=== PATIENT | female | born 1985 | race Caucasian/White ===

== ENCOUNTER 2018-11-29 12:26 | Outpatient (CLI) | payer BC, OTHER ==
[2018-11-29 13:09] LABS: Appearance,Urine Clear (Clear); Bilirubin,Urine Negative (Negative); Blood,Urine Negative (Negative); Color,Urine Light Yellow; Glucose,Urine (UA) Negative (Negative); Ketones,Urine Negative (Negative); Leukocyte Esterase,Urine Negative (Negative); Nitrite,Urine Negative (Negative); Protein,Urine Negative (Negative); Specific Gravity,Urine 1.004 (1.001-1.035); Urobilinogen,Urine <2.0 mg/dL (<2.0)
[2018-11-29 13:19] LABS: Amphetamine Screen,Urine Not Detected (NotDetected); Barbiturate Screen,Urine Not Detected (NotDetected); Benzodiazepines Screen,Urine Not Detected (NotDetected); Cocaine Screen,Urine Not Detected (NotDetected); Methadone Screen, Urine Not Detected (NotDetected); Opiate Screen,Urine Not Detected (NotDetected); Oxycodone Screen, Urine Not Detected (NotDetected); Phencyclidine Screen,Urine Not Detected (NotDetected); Tricyclic Antidepressant,Urine Not Detected (NotDetected); Urn Cannabinoid Scrn Not Detected (NotDetected)
--- NOTE | 2018-11-29 15:01 | US ---
EXAMINATION TYPE: US OB >= 14 wk fetus DATE OF EXAM: 11/29/2018 COMPARISON: None CLINICAL HISTORY: post dates, mother is very small framed and says her dates have been all over the p lace, previous US at [facility], h/o alcohol abuse TECHNIQUE: OBTA GESTATIONAL AGE / DATING Physician Established: (40 weeks/2 days) EDC: 11/27/2018 Dates by LMP: LMP unknown Dates by First Scan: No previous here Dates by Current Scan: (37 weeks/2 days) EDC: 12/18/2018 SURVEY IUP: Single PLACENTA: Anterior PREVIA: No Previa BOBBI: 10.6 cm Normal CERVICAL LENGTH (transabdominal: norm > 3.0cm): unable to visualize due to empty bladder and he ad shadowing BIOMETRY PRESENTATION: Vertex LIE: Longitudinal BPD: 9.2 cm 37 weeks / 2 days HC: 33.5 cm 38 weeks / 3 days AC: 34.3 cm 38 weeks / 2 days FL: 7.2 cm 37 weeks / 0 days ESTIMATED WEIGHT IN GRAMS: 3321 grams ESTIMATED WEIGHT IN LBS/OZ: 7 lbs. 5 oz. WEIGHT PERCENTAGE BASED ON ESTABLISHED DATES: 22.8% HC/AC: 1.0 Normal FL/AC: 21.0 Normal HEART RATE: 143 bpm RHYTHM: Normal IMPRESSION: 1. Single intrauterine gestation estimated at 37 weeks 2 days gestation based on current ultrasound m easurements. Correlate this with her physician established dating of 40 weeks 2 days and EDC of 2018. 2. Cardiac activity measures 142 bpm. 3. Estimated weight based on the established dates is 22.8% and 3321 g.
[2018-11-29 15:14] VITALS: BP 128/82; PULSE 80; RESP 16; TEMP 97.3
--- NOTE | 2018-12-02 08:37 | P.MSEPDOC ---
Presenting Problems - Arrival Data Date of Arrival on Unit: 11/29/18 Time of Arrival on Unit: 12:25 Mode of Transport: EMS - Complaint OB-Reason for Admission/Chief Complaint: Possible Onset of Labor Medical History - Information : 2 Para: 1 Term: 1 : 0 Abortions: Spontaneous or Elective: 0 Number of Living Children: 1 - Gestational Age Gestational Age by CHANEL (wks/days): 40 Weeks and 2 Days Review of Systems - Review of Systems Constitutional: No problems Breast: No problems ENT: No problems Cardiovascular: No problems Respiratory: No problems Gastrointestinal: No problems Genitourinary: No problems Musculoskeletal: No problems Neurological: No problems Skin: No problems Vital Signs - Temperature Temperature: 97.3 F Temperature Source: Temporal Artery Scan - Pulse Right Sitting Pulse Rate: 80 Pulse Assessment Method: Automatic Cuff - Respirations Respiratory Rate: 16 Oxygen Delivery Method: Room Air - Blood Pressure Right Arm Blood Pressure: 128/82 Blood Pressure Mean: 97 Blood Pressure Source: Automatic Cuff Medical Screen Scoring (Pre) - Cervical Exam Dilation: 1-3 cm = 1 Effacement: More than 50% = 2 Membranes: Intact - Uterine Contractions Frequency: > or = 36 weeks =2 Duration: > 40 seconds = 2 Intensity: N/A - Maternal Vital Signs Maternal Temperature: N/A Maternal Blood Pressure: N/A Signs of Preeclampsia: N/A - Pain Assessment Pain Location and Character: Abdomen Pain Scale Used: Numeric (1 - 10) Pain Intensity: 8 Pain Description: *Acute Pain Frequency: Intermittent Pain Duration Units: Hours Pain Behavior: Vocalization Pain Aggravating Factors: Contractions - Maternal Trauma Maternal Trauma: N/A - Assessment Baseline FHR: 125 Heart Rate - NICHD Category: Category I (Normal) = 0 NST: Reactive Position: N/A Station: N/A - Total Score Total Score (Pre): 7 - Level of Risk Level of Risk: Medium (6-9) Physician Notification (Pre) - Physician Notified Physician Notified Date: 11/29/18 Physician Notified Time: 14:51 Physician/Practitioner Notifed:: Darlene Salas Order Received: Yes (D/c home) - Notification Comment Comment: ALIN, BOBBI 10.6, EFW 3321g per US Disposition - Disposition OB Disposition: Discharge to home Discharge Date: 11/29/18 Discharge Time: 14:55 I agree with the RN Medical Screening Exam: Yes Risk & Benefit of care provided described in d/c instruction: Yes Diagnosis: FALSE LABOR BEFORE 37 COMPLETED WEEKS OF GEST, THIRD TRI
== END 2018-11-29 14:55 | disposition home or self-care (01) ==
LOC: FBPOP 12:26
PROVIDERS: ATTEND Obstetrics & Gynecology
DX: O47.1 False labor at or after 37 completed weeks of gestation (principal); Z3A.40 40 weeks gestation of pregnancy
CPT/HCPCS: 59025; 76805; 80306; 81003; 99213

== ENCOUNTER 2018-11-29 18:58 | Inpatient (IN) | payer BC, OTHER ==
[2018-11-29] MEDS ORDERED: METHYLERGONOVINE 0.2 MG/ML 1 ML AMP IM PRN (21:55)
[2018-11-29] MEDS ORDERED: TERBUTALINE 1 MG/ML VIAL SQ PRN (21:55)
[2018-11-29] MEDS ORDERED: OXYTOCIN 10 UNIT/ML 1 ML VIAL IM PRN (21:55)
[2018-11-29] MEDS ORDERED: CARBOPROST TROMETHAMINE 250 MCG/ML 1 ML AMP IM PRN (21:55)
[2018-11-29] MEDS ORDERED: AMPICILLIN 2,000 MG in SODIUM CHLORIDE 0.9% 100 ML IVPB STA (21:55)
[2018-11-29] MEDS ORDERED: LIDOCAINE 0.5% (PF) 5 MG/ML (50 ML SDV) SQ PRN (21:55)
[2018-11-29] MEDS ORDERED: BUTORPHANOL 1 MG/ML 1 ML VIAL IV PRN (21:57)
[2018-11-29] MEDS ORDERED: OXYTOCIN 30 UNITS/500 ML NS 30 UNIT in SALINE 1 500ML.BAG IV SCH (22:00)
[2018-11-29] MEDS ORDERED: LACTATED RINGERS 1,000 ML IV SCH ×2 (22:00)
[2018-11-29 22:18] VITALS: BMI 19.5
[2018-11-29 22:27] LABS: Basophils % (A) 0 %; Eosinophils # (A) 0.2 k/uL (0-0.7); Eosinophils % (A) 1 %; HCT 36.1 % (34.0-46.0); HGB 12.3 gm/dL (11.4-16.0); Lymphocytes # (A) 1.9 k/uL (1.0-4.8); Lymphocytes % (A) 16 %; MCHC 34.2 g/dL (31.0-37.0); MCV 90.5 fL (80.0-100.0); Monocytes # (A) 0.4 k/uL (0-1.0); Monocytes % (A) 3 %; Neutrophils # (A) 9.7 k/uL (1.3-7.7); Neutrophils % (A) 78 %; Platelet Count 281 k/uL (150-450); RBC 3.99 m/uL (3.80-5.40); RDW 13.3 % (11.5-15.5); WBC 12.4 k/uL (3.8-10.6)
[2018-11-30] MEDS ORDERED: MEASLES-MUMPS-RUBELLA VACC/PF 12,500 UNIT/0.5 ML VIAL SQ ONE (00:50)
[2018-11-30] MEDS ORDERED: LANOLIN CREAM 5 GM TUBE TOPICAL PRN (00:50)
[2018-11-30] MEDS ORDERED: HYDROCORTISONE 2.5% RECTAL CREAM 30 GM TUBE RECTAL PRN (00:50)
[2018-11-30] MEDS ORDERED: HYDROcodone/APAP 5-325MG 1 EACH TAB PO PRN (00:50)
[2018-11-30] MEDS ORDERED: diphenhydrAMINE 50 MG CAP PO PRN (00:50)
[2018-11-30] MEDS ORDERED: diphenhydrAMINE 25 MG CAP PO PRN (00:50)
[2018-11-30] MEDS ORDERED: WITCH HAZEL 1 EACH MED..PAD TOPICAL PRN (00:50)
[2018-11-30] MEDS ORDERED: diphenhydrAMINE 50 MG/ML 1 ML VIAL IVP PRN ×2 (00:50)
[2018-11-30] MEDS ORDERED: BENZOCAINE/MENTHOL SPRAY 1 GM/SPRAY AEROSOL TOPICAL PRN (00:50)
[2018-11-30] MEDS ORDERED: SIMETHICONE 80 MG CHEWABLE PO PRN (00:50)
[2018-11-30] MEDS ORDERED: ZOLPIDEM 5 MG TAB PO PRN (00:50)
--- NOTE | 2018-11-30 00:53 | P.HPOB ---
History of Present Illness H&P Date: 11/30/18 Chief Complaint: Intrauterine at term: Active labor Clarice is a 33-year-old at apparently 40 weeks and 2 days gestation per her. Her course has been unremarkable except for EtOH abuse. She relates that she is not having any alcohol last few weeks but did use are all throughout the up until then. She was seeing a physician out of [place] for records are pending we have attempted did receive records we don't have any. I am essentially taking her work for that she is term but, as she is in active labor and measures greater than 37 weeks on fundal height and ultrasound earlier today revealed her to be approximately 37 weeks gestation plan spontaneous vaginal delivery. She anticipates use of Stadol for pain. I have no other real history on her she denies any other medical or surgical issues. Family history unremarkable social history again only significant for alcohol abuse. A urine drug screen was negative. heart tones are in the 130s and there is a category 1 tracing noted. Artificial rupture membranes was performed with her dilated to 6 cm and clear fluid is noted. Past Medical History Past Medical History: No Reported History History of Any Multi-Drug Resistant Organisms: None Reported Past Surgical History: No Surgical Hx Reported Past Anesthesia/Blood Transfusion Reactions: No Reported Reaction Past Psychological History: No Psychological Hx Reported Smoking Status: Former smoker Past Drug Use History: Marijuana - Past Family History Mother Family Medical History: No Reported History Medications and Allergies Home Medications Medication Instructions Recorded Confirmed Type Pnv No.95/Ferrous Fum/Folic AC 1 tab PO DAILY 11/29/18 11/29/18 History [ Multivitamin Tablet] Ranitidine HCl [Zantac] 150 mg PO HS 11/29/18 11/29/18 History Allergies Allergy/AdvReac Type Severity Reaction Status Date / Time sertraline [From Zoloft] Allergy Severe Anaphylaxis Verified 11/29/18 19:37 Exam Osteopathic Statement: *. No significant issues noted on an osteopathic structural exam other than those noted in the History and Physical/Consult. Vital Signs Temp Pulse Resp BP 11/29/18 22:14 98.2 F 60 18 149/85 11/29/18 20:22 98.2 F 60 20 149/85 Intake and Output 11/29/18 11/29/18 11/30/18 14:59 22:59 06:59 Other: # Voids 1 Weight 112 kg - OBG Physical Exam Breast: both: normal (no masses) Abdomen: bowel sounds normal, no diffuse tenderness, no bruit present, no guarding noted, no hepatomegaly, no splenomegaly, no mass Vulva: both: normal Vagina: normal moisture, no discharge Cervix: no lesion, no discharge Uterus: normal size, normal contour Adnexa: both: normal Anus/Rectum: normal perianal skin, no rectal mass, no hemorrhoids, heme negative Results Result Diagrams: 11/29/18 22:15 11/29/18 22:15 Abnormal Lab Results - Last 24 Hours (Table) 11/29/18 Range/Units 22:15 WBC 12.4 H (3.8-10.6) k/uL Neutrophils # 9.7 H (1.3-7.7) k/uL
--- NOTE | 2018-11-30 00:54 | P.PROBDLV ---
Vaginal Delivery Note - . Vaginal Delivery Note: Clarice progressed to complete and pushing with spontaneous vaginal delivery of a viable male over secondary midline laceration. Falling deliver the head anterior posterior shoulders were easily delivered with gentle downward upper traction. Once this was accomplished mouth nares were bulb suctioned and baby was then delivered fully and placed on mother's abdomen where the umbilical cord was allowed to pulsate for 45 seconds prior to clamping and cutting. Nursery personnel was present and assumed care. Placenta was then delivered intact Pitocin was added to the IV. scores were 9 and 9 at one and 5 minutes respectively and the weight was 6 lbs. 11 oz. Secondary midline laceration was then repaired with 3-0 Vicryl following 1% Xylocaine for analgesia. Initially she declined repair but after speaking with her family she decided that the needle didn't bother her enough that she would want to have this relatively large laceration not repaired. It was therefore repaired without difficulty. She did consent to the repair. Both mother and baby are stable following delivery.
[2018-11-30] MEDS ORDERED: OXYTOCIN 20 UNITS/1000 ML NS 1,000 ML IV SCH (01:00)
[2018-11-30] MEDS: IBUPROFEN 600 MG TAB PO PRN ×3 (01:10→13:57)
[2018-11-30] MEDS ORDERED: AMPICILLIN 1,000 MG in SODIUM CHLORIDE 0.9% 50 ML IVPB SCH (01:56)
[2018-11-30] MEDS: SENNOSIDES-DOCUSATE SODIUM 1 EACH TAB PO SCH ×2 (08:04→23:09)
[2018-11-30] MEDS: ACETAMINOPHEN TAB 325 MG TAB PO PRN ×2 (11:48→16:33)
[2018-12-01] MEDS: IBUPROFEN 600 MG TAB PO PRN ×4 (03:53→23:45)
--- NOTE | 2018-12-01 07:58 | P.PNOBGVD ---
Subjective - Subjective Principal diagnosis: day 1 Interval history: Overall Clarice is doing well. She is involuting, voiding and she is tolerating her diet. She voices no complaints but her baby is in special care nursery. We'll continue to monitor. Vital signs are stable and afebrile. Patient reports: Reports appetite normal, Reports voiding normally, Reports pain well controlled, Reports ambulating normally [place]: in NICU Objective - Latest Vital Signs Latest vital signs: Vital Signs Temp Pulse Resp BP 12/01/18 00:23 98.1 F 53 L 14 109/66 11/30/18 16:00 98.2 F 58 L 16 122/65 11/30/18 12:00 97.7 F 65 16 105/63 11/30/18 08:00 97.4 F L 60 18 123/69 - Exam Lungs: bilateral: normal Chest: Normal S1, Normal S2 Extremities: Present: normal Abdomen: Present: normal appearance, soft Uterus: Present: normal, firm
[2018-12-01] MEDS: SENNOSIDES-DOCUSATE SODIUM 1 EACH TAB PO SCH ×2 (08:09→19:59)
[2018-12-01 23:46] VITALS: BP 119/75
[2018-12-02 01:43] LABS: HIV 1 AB Non-Reactive (Non-Reactive); HIV AB P24 Non-Reactive (Non-Reactive); HIV P24 AG Non-Reactive (Non-Reactive)
--- NOTE | 2018-12-02 08:33 | P.DS ---
Providers Date of admission: 11/29/18 21:50 Expected date of discharge: 12/02/18 Attending physician: Joe Colon Primary care physician: Stated None Hospital Course: Clarice is doing very well day 2. She is involuting, voiding and tolerating her diet. She voices no complaints and is stable for discharge. Her baby remains in special care nursery. All questions were answered for her prior to discharge. She is aware to have no heavy lifting and limited her stairs and driving as well as pelvic rest. She will notify her catalyst unit operator should she have any high temperatures, heavy bleeding or severe pain. She'll follow up with them in 6 weeks. On physical exam vital signs are stable and afebrile. Heart regular, lungs clear, extremities without pain. Abdomen soft uterus is firm and lochia is reported light. Assessment day 2. Plan discharged home follow up with her primary catalyst unit operator in 6 weeks. A prescription for Motrin was forwarded to her pharmacy. Patient Condition at Discharge: Good Plan - Discharge Summary New Discharge Prescriptions: New Ibuprofen [Motrin] 600 mg PO Q6HR PRN #30 tab PRN Reason: Pain No Action Ranitidine HCl [Zantac] 150 mg PO HS Pnv No.95/Ferrous Fum/Folic AC [ Multivitamin Tablet] 1 tab PO DAILY Discharge Medication List Pnv No.95/Ferrous Fum/Folic AC [ Multivitamin Tablet] 1 tab PO DAILY 11/29/18 [History] Ranitidine HCl [Zantac] 150 mg PO HS 11/29/18 [History] Ibuprofen [Motrin] 600 mg PO Q6HR PRN #30 tab 12/02/18 [Rx] Activity/Diet/Wound Care/Special Instructions: No heavy lifting, limit stairs and driving, and pelvic rest. If any high temperatures, heavy bleeding, or severe pain call her primary GETTER FILLER. She needs to notify her GETTER FILLER that she has delivered and schedule a 6 weeks follow up appointment with them. Discharge Disposition: HOME SELF-CARE
[2018-12-02] MEDS: SENNOSIDES-DOCUSATE SODIUM 1 EACH TAB PO SCH (09:07)
[2018-12-02] MEDS: IBUPROFEN 600 MG TAB PO PRN ×2 (09:07→14:58)
[2018-12-02 09:58] VITALS: PULSE 69; RESP 18; TEMP 98
== END 2018-12-02 15:00 | disposition home or self-care (01) | DRG 807 ==
LOC: FBPOP 18:58 → 4FBP 21:50
PROVIDERS: ADMIT Obstetrics & Gynecology; ATTEND Obstetrics & Gynecology
PROC: 10E0XZZ Delivery of Products of Conception, External Approach (ICD-10-PCS; principal; 2018-11-29)
PROC: 0KQM0ZZ Repair Perineum Muscle, Open Approach (ICD-10-PCS; 2018-11-29)
DX: O99.314 Alcohol use complicating childbirth (principal); Z37.0 Single live birth; F10.10 Alcohol abuse, uncomplicated; O70.1 Second degree perineal laceration during delivery; Z3A.37 37 weeks gestation of pregnancy; Z87.891 Personal history of nicotine dependence; Z88.8 Allergy status to other drugs, medicaments and biological substances
CPT/HCPCS: 59025; 80320; 82947; 85025; 86762; 86850; 86900; 86901; 87340; 87390; 88307; 99213

== ENCOUNTER 2019-05-03 16:44 | Observation (INO) | payer OTHER ==
--- NOTE | 2019-05-03 16:58 | ED ---
General Adult HPI - General Stated complaint: Chest Pressure, Dizziness Time Seen by Provider: 05/03/19 16:46 Source: patient, EMS Mode of arrival: EMS Limitations: no limitations - History of Present Illness Initial comments: Dictation was produced using [employer] dictation software. please excuse any grammatical, word or spelling errors. Chief Complaint: 33-year-old female presents with chief complaint of chest pain for 6 months. History of Present Illness: 33-year-old female is brought in by EMS from PCPs office. Patient allegedly has been having chest pain for the last several weeks. She was seen at her PCPs office and EKG was performed concerning for ischemia versus infarction. She was transferred via EMS for concerns of cardiac disease. Patient states she has strong family history of heart problems. She reports that her chest pain is substernal with radiation to the back. She states it's sharp. She was given aspirin and nitro per EMS. States that nitro improved her symptoms. She said pain is mild. Denies any numbness and paresthesias to the arms or legs. She is 5-6 months . She states that the prenatals. No shortness of breath. The ROS documented in this emergency department record has been reviewed and confirmed by me. Those systems with pertinent positive or negative responses have been documented in the HPI. All other systems are other negative and/or noncontributory. PHYSICAL EXAM: General Impression: Alert and oriented x3, not in acute distress HEENT: Normocephalic atraumatic, extra-ocular movements intact, pupils equal and reactive to light bilaterally, mucous membranes moist. Cardiovascular: Heart regular rate and rhythm, S1&S2 audible, no murmurs, rubs or gallops Chest: Lungs clear to auscultation bilaterally, no rhonchi, no wheeze, no rales Abdomen: Bowel sounds present, abdomen soft, non-tender, non-distended, no organomegaly Musculoskeletal: Pulses present and equal in all extremities, no peripheral edema Motor: no focal deficits noted Neurological: CN II-XII grossly intact, no focal motor or sensory deficits noted Skin: Intact with no visualized rashes Psych: Normal affect and mood ED course: 33-year-old female sent in from these results for chest pain and concerning EKG. EKG from patient his office and EMS. EKG did not show any signs of infarction. Laboratory evaluation obtained. CBC, coag panel, metabolic panel is unremarkable. Cardiac enzymes negative. Urinalysis is negative. Chest x-ray is nonacute. Discussed with patient that she will need serial troponins. She is agreeable for being admitted to observation. She received aspirin with EMS prior to arrival. Patient be admitted for surgical and cardiology consultation. She is well-appearing at this time.. EKG interpretation: Ventricular rate 47, sinus regarding,. Interval 170, QS 12, QTc 385. No CO prolongation, no QTC prolongation, no ST or T-wave changes noted. EKG compared to 01/05/2019 showing no changes. Overall, this EKG is unremarkable - Related Data Home Medications Medication Instructions Recorded Confirmed Cholecalciferol [Vitamin D3 (25 1,000 unit PO DAILY 05/03/19 05/03/19 Mcg = 1000 Iu)] Nicotine Polacrilex [Nicorette] 2 mg BUCCAL Q2H PRN 05/03/19 05/03/19 Phh-Boak-Qginn Acid 1 cap PO DAILY 05/03/19 05/03/19 [-U Capsule (formulary)] Previous Rx's Medication Instructions Recorded Ibuprofen [Motrin] 600 mg PO Q6HR PRN #30 tab 12/02/18 Allergies Allergy/AdvReac Type Severity Reaction Status Date / Time sertraline [From Zoloft] Allergy Severe Anaphylaxis Verified 05/03/19 17:39 Review of Systems ROS Statement: Those systems with pertinent positive or pertinent negative responses have been documented in the HPI. ROS Other: All systems not noted in ROS Statement are negative. Past Medical History Past Medical History: No Reported History History of Any Multi-Drug Resistant Organisms: None Reported Past Surgical History: No Surgical Hx Reported Past Anesthesia/Blood Transfusion Reactions: No Reported Reaction Past Psychological History: No Psychological Hx Reported Smoking Status: Former smoker Past Alcohol Use History: None Reported Past Drug Use History: Marijuana - Past Family History Mother Family Medical History: No Reported History General Exam Limitations: no limitations Course Vital Signs 05/03/19 05/03/19 05/03/19 16:49 17:10 17:14 Temperature 98.7 F Pulse Rate 67 Pulse Rate [ 56 L Mold Blower ] Respiratory 18 18 Rate Blood Pressure 110/73 O2 Sat by Pulse 97 Oximetry Medical Decision Making - Lab Data Result diagrams: 05/03/19 17:00 05/03/19 17:00 Lab Results 05/03/19 05/03/19 05/03/19 Range/Units 17:00 17:00 17:00 WBC 6.0 (3.8-10.6) k/uL RBC 3.89 (3.80-5.40) m/uL Hgb 12.1 (11.4-16.0) gm/dL Hct 35.6 (34.0-46.0) % MCV 91.5 (80.0-100.0) fL MCH 31.0 (25.0-35.0) pg MCHC 33.9 (31.0-37.0) g/dL RDW 12.0 (11.5-15.5) % Plt Count 314 (150-450) k/uL Neutrophils % 47 % Lymphocytes % 42 % Monocytes % 5 % Eosinophils % 3 % Basophils % 1 % Neutrophils # 2.9 (1.3-7.7) k/uL Lymphocytes # 2.6 (1.0-4.8) k/uL Monocytes # 0.3 (0-1.0) k/uL Eosinophils # 0.2 (0-0.7) k/uL Basophils # 0.0 (0-0.2) k/uL PT (9.0-12.0) sec INR (<1.2) APTT (22.0-30.0) sec Sodium 139 (137-145) mmol/L Potassium 3.7 (3.5-5.1) mmol/L Chloride 105 (98-107) mmol/L Carbon Dioxide 25 (22-30) mmol/L Anion Gap 9 mmol/L BUN 8 (7-17) mg/dL Creatinine 0.53 (0.52-1.04) mg/dL Est GFR (CKD-EPI)AfAm >90 (>60 ml/min/1.73 sqM) Est GFR (CKD-EPI)NonAf >90 (>60 ml/min/1.73 sqM) Glucose 104 H (74-99) mg/dL Calcium 9.6 (8.4-10.2) mg/dL Magnesium 2.1 (1.6-2.3) mg/dL Total Bilirubin 0.4 (0.2-1.3) mg/dL AST 22 (14-36) U/L ALT 24 (9-52) U/L Alkaline Phosphatase 54 (38-126) U/L Troponin I (0.000-0.034) ng/mL NT-Pro-B Natriuret Pep 94 pg/mL Total Protein 7.2 (6.3-8.2) g/dL Albumin 4.2 (3.5-5.0) g/dL Urine Color Urine Appearance (Clear) Urine pH (5.0-8.0) Ur Specific [place] (1.001-1.035) Urine Protein (Negative) Urine Glucose (UA) (Negative) Urine Ketones (Negative) Urine Blood (Negative) Urine Nitrite (Negative) Urine Bilirubin (Negative) Urine Urobilinogen (<2.0) mg/dL Ur Leukocyte Esterase (Negative) Urine RBC (0-5) /hpf Ur Squamous Epith Cells (0-4) /hpf Urine Bacteria (None) /hpf Urine HCG, Qual (Not Detectd) 05/03/19 05/03/19 05/03/19 Range/Units 17:00 17:00 17:00 WBC (3.8-10.6) k/uL RBC (3.80-5.40) m/uL Hgb (11.4-16.0) gm/dL Hct (34.0-46.0) % MCV (80.0-100.0) fL MCH (25.0-35.0) pg MCHC (31.0-37.0) g/dL RDW (11.5-15.5) % Plt Count (150-450) k/uL Neutrophils % % Lymphocytes % % Monocytes % % Eosinophils % % Basophils % % Neutrophils # (1.3-7.7) k/uL Lymphocytes # (1.0-4.8) k/uL Monocytes # (0-1.0) k/uL Eosinophils # (0-0.7) k/uL Basophils # (0-0.2) k/uL PT 10.5 (9.0-12.0) sec INR 1.0 (<1.2) APTT 25.4 (22.0-30.0) sec Sodium (137-145) mmol/L Potassium (3.5-5.1) mmol/L Chloride (98-107) mmol/L Carbon Dioxide (22-30) mmol/L Anion Gap mmol/L BUN (7-17) mg/dL Creatinine (0.52-1.04) mg/dL Est GFR (CKD-EPI)AfAm (>60 ml/min/1.73 sqM) Est GFR (CKD-EPI)NonAf (>60 ml/min/1.73 sqM) Glucose (74-99) mg/dL Calcium (8.4-10.2) mg/dL Magnesium (1.6-2.3) mg/dL Total Bilirubin (0.2-1.3) mg/dL AST (14-36) U/L ALT (9-52) U/L Alkaline Phosphatase (38-126) U/L Troponin I <0.012 (0.000-0.034) ng/mL NT-Pro-B Natriuret Pep pg/mL Total Protein (6.3-8.2) g/dL Albumin (3.5-5.0) g/dL Urine Color Light Yellow Urine Appearance Clear (Clear) Urine pH 5.5 (5.0-8.0) Ur Specific [place] 1.003 (1.001-1.035) Urine Protein Negative (Negative) Urine Glucose (UA) Negative (Negative) Urine Ketones Negative (Negative) Urine Blood Moderate H (Negative) Urine Nitrite Negative (Negative) Urine Bilirubin Negative (Negative) Urine Urobilinogen <2.0 (<2.0) mg/dL Ur Leukocyte Esterase Negative (Negative) Urine RBC 4 (0-5) /hpf Ur Squamous Epith Cells 2 (0-4) /hpf Urine Bacteria Rare H (None) /hpf Urine HCG, Qual (Not Detectd) 05/03/19 Range/Units 17:00 WBC (3.8-10.6) k/uL RBC (3.80-5.40) m/uL Hgb (11.4-16.0) gm/dL Hct (34.0-46.0) % MCV (80.0-100.0) fL MCH (25.0-35.0) pg MCHC (31.0-37.0) g/dL RDW (11.5-15.5) % Plt Count (150-450) k/uL Neutrophils % % Lymphocytes % % Monocytes % % Eosinophils % % Basophils % % Neutrophils # (1.3-7.7) k/uL Lymphocytes # (1.0-4.8) k/uL Monocytes # (0-1.0) k/uL Eosinophils # (0-0.7) k/uL Basophils # (0-0.2) k/uL PT (9.0-12.0) sec INR (<1.2) APTT (22.0-30.0) sec Sodium (137-145) mmol/L Potassium (3.5-5.1) mmol/L Chloride (98-107) mmol/L Carbon Dioxide (22-30) mmol/L Anion Gap mmol/L BUN (7-17) mg/dL Creatinine (0.52-1.04) mg/dL Est GFR (CKD-EPI)AfAm (>60 ml/min/1.73 sqM) Est GFR (CKD-EPI)NonAf (>60 ml/min/1.73 sqM) Glucose (74-99) mg/dL Calcium (8.4-10.2) mg/dL Magnesium (1.6-2.3) mg/dL Total Bilirubin (0.2-1.3) mg/dL AST (14-36) U/L ALT (9-52) U/L Alkaline Phosphatase (38-126) U/L Troponin I (0.000-0.034) ng/mL NT-Pro-B Natriuret Pep pg/mL Total Protein (6.3-8.2) g/dL Albumin (3.5-5.0) g/dL Urine Color Urine Appearance (Clear) Urine pH (5.0-8.0) Ur Specific [place] (1.001-1.035) Urine Protein (Negative) Urine Glucose (UA) (Negative) Urine Ketones (Negative) Urine Blood (Negative) Urine Nitrite (Negative) Urine Bilirubin (Negative) Urine Urobilinogen (<2.0) mg/dL Ur Leukocyte Esterase (Negative) Urine RBC (0-5) /hpf Ur Squamous Epith Cells (0-4) /hpf Urine Bacteria (None) /hpf Urine HCG, Qual Not Detected (Not Detectd) Disposition Clinical Impression: Chest pain Disposition: ADMITTED IP TO THIS [facility] Condition: Fair Referrals: Vilma Cárdenas MD [Primary Care Provider] - 1-2 days Decision Time: 18:48
[2019-05-03 17:18] LABS: Basophils % (A) 1 %; Eosinophils # (A) 0.2 k/uL (0-0.7); Eosinophils % (A) 3 %; HCT 35.6 % (34.0-46.0); HGB 12.1 gm/dL (11.4-16.0); Lymphocytes # (A) 2.6 k/uL (1.0-4.8); Lymphocytes % (A) 42 %; MCHC 33.9 g/dL (31.0-37.0); MCV 91.5 fL (80.0-100.0); Mean Platelet Volume 5.8; Monocytes # (A) 0.3 k/uL (0-1.0); Monocytes % (A) 5 %; Neutrophils # (A) 2.9 k/uL (1.3-7.7); Neutrophils % (A) 47 %; Platelet Count 314 k/uL (150-450); RBC 3.89 m/uL (3.80-5.40)
[2019-05-03 17:23] LABS: Appearance,Urine Clear (Clear); Bacteria,Urine Rare /hpf; Bilirubin,Urine Negative (Negative); Blood,Urine Moderate (Negative); Color,Urine Light Yellow; Glucose,Urine (UA) Negative (Negative); Ketones,Urine Negative (Negative); Leukocyte Esterase,Urine Negative (Negative); Nitrite,Urine Negative (Negative); PH, Urine 5.5 (5.0-8.0); Protein,Urine Negative (Negative); RBC,Urine 4 /hpf (0-5); Specific Gravity,Urine 1.003 (1.001-1.035); Squamous Epithelial Cell,Urine 2 /hpf (0-4); Urobilinogen,Urine <2.0 mg/dL (<2.0)
[2019-05-03 17:28] LABS: ALT 24 U/L (9-52); AST 22 U/L (14-36); African American GFR (CKD) >90 (>60 ml/min/1.73 sqM); Albumin 4.2 g/dL (3.5-5.0); Alkaline Phosphatase 54 U/L (38-126); Anion Gap 9 mmol/L; Blood Urea Nitrogen 8 mg/dL (7-17); Calcium 9.6 mg/dL (8.4-10.2); Carbon Dioxide 25 mmol/L (22-30); Chloride 105 mmol/L (98-107); Glucose 104 mg/dL (74-99); Magnesium 2.1 mg/dL (1.6-2.3); Non-African American GFR(CKD) >90 (>60 ml/min/1.73 sqM); Potassium 3.7 mmol/L (3.5-5.1); Sodium 139 mmol/L (137-145); Total Bilirubin 0.4 mg/dL (0.2-1.3); Total Protein 7.2 g/dL (6.3-8.2)
[2019-05-03 17:30] LABS: Partial Thromboplastin Time 25.4 sec (22.0-30.0); Prothrombin Time 10.5 sec (9.0-12.0)
--- NOTE | 2019-05-03 17:30 | XR ---
EXAMINATION TYPE: XR chest 2V DATE OF EXAM: 05/03/2019 COMPARISON: NONE HISTORY: Chest pain TECHNIQUE: Frontal and lateral views of the chest are obtained. FINDINGS: Heart and mediastinum are normal. Lungs are clear. Diaphragm is normal. Bony thorax appear s normal. There is minimal pleural thickening at the lung apices. IMPRESSION: No active cardiopulmonary disease. Normal heart.
[2019-05-03] MEDS ORDERED: NITROGLYCERIN SL TABS 0.4 MG TAB SUBLINGUAL PRN (18:45)
[2019-05-04 05:35] LABS: Cholesterol 161 mg/dL (<200); HDL Cholesterol 45 mg/dL (40-60); LDL Cholesterol,Calculated 100 mg/dL (0-99); Triglycerides 79 mg/dL (<150)
[2019-05-04 07:43] VITALS: RESP 16
[2019-05-04] MEDS ORDERED: ASPIRIN 325 MG TAB PO SCH (09:00)
--- NOTE | 2019-05-04 09:19 | P.CRDCN ---
History of Present Illness History of present illness: This is a pleasant 33-year-old female with no significant past medical history. She quit smoking tobacco and marijuana in October 2018. She is 5 months . She states for the previous 1 month she has been having intermittent episodes of tight squeezing sensation in the midsternal region with sharp shooting pains to the back at times. This is not exacerbated by activity or exertion. It is not related to oral intake. She also describes feeling dizzy when she changes positions at times. She denies palpitations, nausea, vomiting, shortness of breath or diaphoresis. EKG reveals sinus mechanism with early repolarization and nonspecific T waves anteriorly. Chest x-ray is negative for an acute cardiopulmonary process. Laboratory data reviewed, CBC unremarkable, sodium 139, potassium 3.7, creatinine 0.53, cardiac enzymes negative 3, proBNP 94, LDL 100. She takes no daily cardiac medications. At the time of my exam: CONSTITUTIONAL: Denies fever. Denies chills. EYES: Denies blurred vision. Denies vision changes. Denies eye pain. EARS, NOSE, MOUTH & THROAT: Denies headache. Denies sore throat. Denies ear pain. CARDIOVASCULAR: Denies chest pain. Denies shortness of breath. Denies orthopnea. Denies PND. Denies palpitations. RESPIRATORY: Denies cough. GASTROINTESTINAL: Denies abdominal pain. Denies diarrhea. Denies constipation. Denies nausea. Denies vomiting. MUSCULOSKELETAL: Denies myalgias. INTEGUMENTARY: Denies pruitis. Denies rash. NEUROLOGIC: Denies numbness. Denies tingling. Denies weakness. Complains of dizziness with position changes. PSYCHIATRIC: Denies anxiety. Denies depression. ENDOCRINE: Denies fatigue. Denies weight change. Denies polydipsia. Denies polyurina. GENITOURINARY: Denies burning, hematuria or urgency with micturation. HEMATOLOGIC: Denies history of anemia. Denies bleeding. Blood pressure 92/51 heart rate 51 afebrile maintaining oxygen saturation on room air GENERAL: This is a 33-year-old female in no apparent distress at the time of my examination. HEENT: Head is atraumatic, normocephalic. Pupils are equal, round. Sclerae anicteric. Conjunctivae are clear. Mucous membranes of the mouth are moist. Neck is supple. There is no jugular venous distention. No carotid bruit is heard. LUNGS: Clear to auscultation no wheezes, rales or rhonchi. No chest wall tenderness is noted on palpation or with deep breathing. HEART: Regular rate and rhythm without murmurs, rubs or gallops. S1 and S2 heard. ABDOMEN: Soft, nontender. Bowel sounds are heard. No organomegaly noted. EXTREMITIES: No evidence of peripheral edema and no calf tenderness noted. VASCULAR: Radial and dorsalis pedis pulses palpated, no evidence of clubbing. NEUROLOGIC: Patient is awake, alert and oriented x3. ASSESSMENT Chest pain, atypical for angina. An acute coronary event has been ruled out. Intermittent dizziness not associated with chest discomfort Former nicotine dependence, quit October 2018 PLAN An acute coronary event has been ruled out. Check for orthostatic changes. Obtain 2-D echocardiogram and Doppler study to assess cardiac structure and function. Perform exercise stress test to assess for stress-induced ischemia. If diagnostic testing is normal she may be discharged from a cardiac perspective. Symptoms are atypical to be related to underlying cardiac etiology likely related to musculoskeletal strain. Thank you kindly for this consultation. Nurse Practitioner note has been reviewed, I agree with a documented findings and plan of care. Patient was seen and examined. Past Medical History Past Medical History: No Reported History History of Any Multi-Drug Resistant Organisms: None Reported Past Surgical History: No Surgical Hx Reported Past Anesthesia/Blood Transfusion Reactions: No Reported Reaction Past Psychological History: PTSD Smoking Status: Former smoker Past Alcohol Use History: None Reported Past Drug Use History: Marijuana Additional Drug Use History / Comment(s): PT QUIT ETOH, SMOKING AND MARIJUANA 09/2018 - Past Family History Mother Family Medical History: Cancer, Coronary Artery Disease (CAD) Father Family Medical History: Cancer, Prostate Disorder Medications and Allergies Home Medications Medication Instructions Recorded Confirmed Type Ibuprofen [Motrin] 600 mg PO Q6HR PRN #30 tab 12/02/18 05/03/19 Rx Cholecalciferol [Vitamin D3 (25 1,000 unit PO DAILY 05/03/19 05/03/19 History Mcg = 1000 Iu)] Nicotine Polacrilex [Nicorette] 2 mg BUCCAL Q2H PRN 05/03/19 05/03/19 History Izy-Decj-Ahxyi Acid 1 cap PO DAILY 05/03/19 05/03/19 History [-U Capsule (formulary)] Allergies Allergy/AdvReac Type Severity Reaction Status Date / Time sertraline [From Zoloft] Allergy Severe Anaphylaxis Verified 05/03/19 17:39 Physical Exam Vitals: Vital Signs Temp Pulse Pulse Pulse Resp BP BP 05/04/19 07:15 97.9 F 51 L 16 92/51 05/04/19 04:00 97.8 F 60 18 05/04/19 00:00 57 L 18 05/03/19 23:37 98.1 F 57 L 18 05/03/19 20:00 53 L 18 05/03/19 19:30 98.1 F 53 L 17 05/03/19 19:16 98.0 F 54 L 18 117/70 05/03/19 17:14 18 05/03/19 17:10 56 L 05/03/19 16:49 98.7 F 67 18 110/73 BP Pulse Ox 05/04/19 07:15 98 05/04/19 04:00 92/51 98 05/04/19 00:00 05/03/19 23:37 102/56 100 05/03/19 20:00 05/03/19 19:30 114/55 98 05/03/19 19:16 98 05/03/19 17:14 05/03/19 17:10 05/03/19 16:49 97 Intake and Output 05/03/19 05/04/19 05/04/19 22:59 06:59 14:59 Other: # Voids 1 Weight 46.72 kg Results 05/03/19 17:00 05/03/19 17:00 Cardiac Enzymes 05/03/19 05/03/19 05/03/19 Range/Units 17:00 17:00 22:38 AST 22 (14-36) U/L Troponin I <0.012 <0.012 (0.000-0.034) ng/mL 05/04/19 Range/Units 05:02 AST (14-36) U/L Troponin I <0.012 (0.000-0.034) ng/mL Coagulation 05/03/19 Range/Units 17:00 PT 10.5 (9.0-12.0) sec APTT 25.4 (22.0-30.0) sec Lipids 05/04/19 Range/Units 05:02 Triglycerides 79 (<150) mg/dL Cholesterol 161 (<200) mg/dL HDL Cholesterol 45 (40-60) mg/dL CBC 05/03/19 Range/Units 17:00 WBC 6.0 (3.8-10.6) k/uL RBC 3.89 (3.80-5.40) m/uL Hgb 12.1 (11.4-16.0) gm/dL Hct 35.6 (34.0-46.0) % Plt Count 314 (150-450) k/uL Comprehensive Metabolic Panel 05/03/19 Range/Units 17:00 Sodium 139 (137-145) mmol/L Potassium 3.7 (3.5-5.1) mmol/L Chloride 105 (98-107) mmol/L Carbon Dioxide 25 (22-30) mmol/L BUN 8 (7-17) mg/dL Creatinine 0.53 (0.52-1.04) mg/dL Glucose 104 H (74-99) mg/dL Calcium 9.6 (8.4-10.2) mg/dL AST 22 (14-36) U/L ALT 24 (9-52) U/L Alkaline Phosphatase 54 (38-126) U/L Total Protein 7.2 (6.3-8.2) g/dL Albumin 4.2 (3.5-5.0) g/dL Current Medications Generic Name Dose Route Start Last Admin Trade Name Freq PRN Reason Stop Dose Admin Aspirin 325 mg 05/04/19 09:00 Aspirin PO DAILY KOBI Nitroglycerin 0.4 mg 05/03/19 18:45 Nitrostat SUBLINGUAL Q5M PRN Chest Pain Intake and Output 05/03/19 05/04/19 05/04/19 22:59 06:59 14:59 Other: # Voids 1 Weight 46.72 kg 05/03/19 17:00 05/03/19 17:00
[2019-05-04 11:10] VITALS: BP 96/62; PULSE 55; TEMP 97.7
--- NOTE | 2019-05-04 11:35 | ECHOF ---
Referral Reason:cp, dizzy, post- MEASUREMENTS -------- HEIGHT: 160.0 cm WEIGHT: 46.7 kg BP: RVIDd: 1.8 cm (< 3.3) IVSd: 0.6 cm (0.6 - 1.1) LVIDd: 4.6 cm (3.9 - 5.3) LVPWd: 1.0 cm (0.6 - 1.1) IVSs: 1.2 cm LVIDs: 2.6 cm LVPWs: 1.6 cm LAESV Index (A-L): 28.09 ml/m Ao Diam: 2.1 cm (2.0 - 3.7) AV Cusp: 1.6 cm (1.5 - 2.6) LA Diam: 2.4 cm (2.7 - 3.8) MV EXCURSION: 18.330 mm (> 18.000) MV EF SLOPE: 125 mm/s (70 - 150) EPSS: 1.3 cm MV E Hema: 1.25 m/s MV DecT: 282 ms MV A Hema: 0.49 m/s MV E/A Ratio: 2.53 RAP: 5.00 mmHg RVSP: 11.59 mmHg TAPSE: 24.73 mm FINDINGS -------- Resting bradycardia (HR<60bpm). This was a technically adequate study. The left ventricular size is normal. Left ventricular wall thickness is normal. Overall left vent ricular systolic function is normal with, an EF between 55 - 60 %. The diastolic filling pattern is normal for the age of the patient 14.93. The right ventricle is normal in size. The right ventricular systolic function is normal. The left atrial size is normal. Normal LA size by volume 22+/-6 ml/m2. The right atrial size is normal. The aortic valve is trileaflet and appears structurally normal. The mitral valve is normal. The mitral valve leaflets are mildly thickened. There is trace mitral regurgitation. The tricuspid valve appears structurally normal. Trace tricuspid regurgitation present. Right garcía tricular systolic pressure is normal at < 35 mmHg. There is no pulmonic regurgitation present. The aortic root size is normal. Normal inferior vena cava with normal inspiratory collapse consistent with estimated right atrial pre ssure of 5 mmHg. There is a trivial pericardial effusion present. CONCLUSIONS -------- 1. Resting bradycardia (HR<60bpm). 2. This was a technically adequate study. 3. The left ventricular size is normal. 4. Left ventricular wall thickness is normal. 5. Overall left ventricular systolic function is normal with, an EF between 55 - 60 %. 6. The diastolic filling pattern is normal for the age of the patient 14.93 7. The right ventricle is normal in size. 8. The right ventricular systolic function is normal. 9. The left atrial size is normal. 10. Normal LA size by volume 22+/-6 ml/m2. 11. The right atrial size is normal. 12. The aortic valve is trileaflet and appears structurally normal. 13. The mitral valve is normal. 14. The mitral valve leaflets are mildly thickened. 15. There is trace mitral regurgitation. 16. The tricuspid valve appears structurally normal. 17. Trace tricuspid regurgitation present. 18. Right ventricular systolic pressure is normal at < 35 mmHg. 19. There is no pulmonic regurgitation present. 20. The aortic root size is normal. 21. Normal inferior vena cava with normal inspiratory collapse consistent with estimated right atrial pressure of 5 mmHg. 22. There is a trivial pericardial effusion present. SPECIAL SERVICES DIRECTOR: Sweta Rice, [facility]
[2019-05-04 11:44] VITALS: BMI 18.2
--- NOTE | 2019-05-04 13:52 | EST ---
EXERCISE STRESS AGE: 33 SEX: F HT: 63" WT: 103 PROTOCOL: Moose Stress Test STAGE: 4 DURATION OF EXERCISE: 10:30 HEART RATE REST: 57 BLOOD PRESSURE REST: 116/59 MAXIMUM HEART RATE ACHIEVED: 161 MAXIMUM BLOOD PRESSURE: 171/66 85% MPHR: 160 100% MPHR: 188 METS: 12.1 INDICATIONS: Chest pain. CLINICAL INFORMATION: Baseline EKG revealed normal sinus rhythm. Patient walked on a standard Moose protocol for 10.5 minutes., achieved a maximal heart rate of 161 beats per minute which is 85% of predicted maximal. She developed fatigue and shortness of breath, but she did not have any angina or any arrhythmia. EKG did not reveal any ST-segment changes to indicate ischemia. This is a negative stress test by EKG criteria with excellent exercise capacity. MMMESHAL / IJN: [id number] /
--- NOTE | 2019-05-04 15:03 | P.DS ---
Providers Date of admission: 05/03/19 18:46 Attending physician: Marixa Kerr Consults: 05/03/19 18:46 Consult Physician Urgent Consulting Provider: Daljit Trejo Consult Reason/Comments: chest pain Do you want consulting provider notified?: Yes Primary care physician: Vilma Cárdenas [facility] Course: As mentioned in HPI Patient Condition at Discharge: Fair Plan - Discharge Summary Discharge Rx Participant: No New Discharge Prescriptions: Continue Ibuprofen [Motrin] 600 mg PO Q6HR PRN #30 tab PRN Reason: Pain Nicotine Polacrilex [Nicorette] 2 mg BUCCAL Q2H PRN PRN Reason: SMOKING CESSATION Alp-Xpbd-Kycon Acid [-U Capsule (formulary)] 1 cap PO DAILY Cholecalciferol [Vitamin D3 (25 Mcg = 1000 Iu)] 1,000 unit PO DAILY Discharge Medication List Ibuprofen [Motrin] 600 mg PO Q6HR PRN #30 tab 12/02/18 [Rx] Cholecalciferol [Vitamin D3 (25 Mcg = 1000 Iu)] 1,000 unit PO DAILY 05/03/19 [History] Nicotine Polacrilex [Nicorette] 2 mg BUCCAL Q2H PRN 05/03/19 [History] Nor-Geer-Meaji Acid [-U Capsule (formulary)] 1 cap PO DAILY 05/03/19 [History] Follow up Appointment(s)/Referral(s): Vilma Cárdenas MD [Primary Care Provider] - 3 Days Patient Instructions/Handouts: Chest Pain (DC) Discharge Disposition: HOME SELF-CARE
--- NOTE | 2019-05-04 15:03 | P.HPIM ---
History of Present Illness 33-year-old pleasant female in with complaints of lightheadedness denied any chest pain to me apparently she was complaining of chest pain in ER and the cardiology because of which way patient underwent stress test. Patient blood p ressure is in 90s systolic apparently it was in 80s and patient was lightheaded because of which patient came to ER. Patient received some IV fluids and patient is not dizzy anymore. I'll obtain a TSH. Echocardiogram was obtained which did not show any wall motion abnormalities EKG did not show any significant abnormality. If she continues to have low blood pressure with symptoms patient probably will need further workup starting with serum cortisol level as an outpatient. Patient is otherwise clinically doing well had a stress test because of complaints of chest pain which was negative ruled out acute cardio syndromes patient will be discharged today. Review of Systems REVIEW OF SYSTEMS: CONSTITUTIONAL: No fever, no malaise, no fatigue. HEENT: No recent visual problems or hearing problems. Denied any sore throat. CARDIOVASCULAR: No chest pain, orthopnea, PND, no palpitations, no syncope. PULMONARY: No shortness of breath, no cough, no hemoptysis. GASTROINTESTINAL: No diarrhea, no nausea, no vomiting, no abdominal pain. NEUROLOGICAL: No headaches, no weakness, no numbness. HEMATOLOGICAL: Denies any bleeding or petechiae. GENITOURINARY: Denies any burning micturition, frequency, or urgency. MUSCULOSKELETAL/RHEUMATOLOGICAL: Denies any joint pain, swelling, or any muscle pain. ENDOCRINE: Denies any polyuria or polydipsia. The rest of the 14-point review of systems is negative. Past Medical History Past Medical History: No Reported History History of Any Multi-Drug Resistant Organisms: None Reported Past Surgical History: No Surgical Hx Reported Past Anesthesia/Blood Transfusion Reactions: No Reported Reaction Past Psychological History: PTSD Smoking Status: Former smoker Past Alcohol Use History: None Reported Past Drug Use History: Marijuana Additional Drug Use History / Comment(s): PT QUIT ETOH, SMOKING AND MARIJUANA 09/2018 - Past Family History Mother Family Medical History: Cancer, Coronary Artery Disease (CAD) Father Family Medical History: Cancer, Prostate Disorder Medications and Allergies Home Medications Medication Instructions Recorded Confirmed Type Ibuprofen [Motrin] 600 mg PO Q6HR PRN #30 tab 12/02/18 05/03/19 Rx Cholecalciferol [Vitamin D3 (25 1,000 unit PO DAILY 10/28/19 10/28/19 History Mcg = 1000 Iu)] Nicotine Polacrilex [Nicorette] 2 mg BUCCAL Q2H PRN 05/03/19 05/03/19 History Vne-Zdae-Gghhi Acid 1 cap PO DAILY 05/03/19 05/03/19 History [-U Capsule (formulary)] Allergies Allergy/AdvReac Type Severity Reaction Status Date / Time sertraline [From Zoloft] Allergy Severe Anaphylaxis Verified 05/03/19 17:39 Physical Exam Vitals: Vital Signs Temp Pulse Pulse Pulse Resp BP BP 05/04/19 11:09 97.7 F 55 L 16 96/62 05/04/19 07:15 97.9 F 51 L 16 92/51 05/04/19 04:00 97.8 F 60 18 05/04/19 00:00 57 L 18 05/03/19 23:37 98.1 F 57 L 18 05/03/19 20:00 53 L 18 05/03/19 19:30 98.1 F 53 L 17 05/03/19 19:16 98.0 F 54 L 18 117/70 05/03/19 17:14 18 05/03/19 17:10 56 L 05/03/19 16:49 98.7 F 67 18 110/73 BP Pulse Ox 05/04/19 11:09 99 05/04/19 07:15 98 05/04/19 04:00 92/51 98 05/04/19 00:00 05/03/19 23:37 102/56 100 05/03/19 20:00 05/03/19 19:30 114/55 98 05/03/19 19:16 98 05/03/19 17:14 05/03/19 17:10 05/03/19 16:49 97 Intake and Output 05/03/19 05/04/19 05/04/19 22:59 06:59 14:59 Intake Total 240 Balance 240 Intake: Oral 240 Other: Voiding Method Toilet # Voids 1 Weight 46.72 kg 46.72 kg PHYSICAL EXAMINATION: GENERAL: The patient is alert and oriented x3, not in any acute distress. Thin built female HEENT: Pupils are round and equally reacting to light. EOMI. No scleral icterus. No conjunctival pallor. Normocephalic, atraumatic. No pharyngeal erythema. No thyromegaly. CARDIOVASCULAR: S1 and S2 present. No murmurs, rubs, or gallops. PULMONARY: Chest is clear to auscultation, no wheezing or crackles. ABDOMEN: Soft, nontender, nondistended, normoactive bowel sounds. No palpable organomegaly. MUSCULOSKELETAL: No joint swelling or deformity. EXTREMITIES: No cyanosis, clubbing, or pedal edema. NEUROLOGICAL: Gross neurological examination did not reveal any focal deficits. SKIN: No rashes. Results CBC & Chem 7: 05/03/19 17:00 05/03/19 17:00 Labs: Abnormal Lab Results - Last 24 Hours (Table) 05/03/19 05/03/19 05/04/19 Range/Units 17:00 17:00 05:02 Glucose 104 H (74-99) mg/dL LDL Cholesterol, Calc 100 H (0-99) mg/dL Urine Blood Moderate H (Negative) Urine Bacteria Rare H (None) /hpf Thrombosis Risk Factor Assmnt - Choose All That Apply Any of the Below Risk Factors Present?: Yes Each Factor Represents 1 point: Acute ND Other Risk Factors: No Other congenital or acquired thrombophilia - If yes, enter type in comment: No Thrombosis Risk Factor Assessment Total Risk Factor Score: 1 Thrombosis Risk Factor Assessment Level: Low Risk Assessment and Plan Plan: -Dizziness: Patient was hypotensive although her blood pressure improved dizziness improved etiology of low blood pressure is not clear at this point of time we'll obtain a TSH level further workup can be done as an outpatient echocardiogram is within normal limits -Ruled out acute coronary syndromes patient is a stress test that was negative patient is cleared from cardiology perspective to be discharged -History of PTSD
== END 2019-05-04 15:24 | disposition home or self-care (01) ==
LOC: EC 16:44 → 1SOBS 18:46
PROVIDERS: ADMIT Hospitalist; ATTEND Hospitalist
DX: R07.89 Other chest pain (principal); I95.9 Hypotension, unspecified; F43.10 Post-traumatic stress disorder, unspecified; Z88.8 Allergy status to other drugs, medicaments and biological substances; Z87.891 Personal history of nicotine dependence; Z82.49 Family history of ischemic heart disease and other diseases of the circulatory system; Z80.42 Family history of malignant neoplasm of prostate
CPT/HCPCS: 93005 ×2; 99285; 36415; 93017; 93306; 83880; 80061; 80053; 84443; 83735; 84484 ×2; 85025; 85610; 85730; 81001; 81025; 71046; G0378 ×2

== ENCOUNTER → 2024-05-10 | Outpatient (CLI) | payer BC ==
--- NOTE | 2024-05-10 16:02 | CT ---
EXAMINATION TYPE: CT brain wo con DATE OF EXAM: 05/10/2024 COMPARISON: None CLINICAL INDICATION: Female, 38 years old with history of R51.9 NEW HEADACHE; [facility], 1129 TECHNIQUE: CT of the brain performed without contrast with sagittal and coronal reformats. CT DLP: Headache that has lasted three weeks. mGycm CT CTDI: mGy Automated exposure control for dose reduction was used. Findings: The ventricles, basal cisterns and sulci over the convexities are within normal limits and there is n o mass effect or shift of midline structures. No abnormal density is seen throughout the brain parenchyma and there is no acute intra or extra-axia l hemorrhage. The posterior fossa including the brainstem, fourth ventricle and cerebellar pontine angles appear no rmal. Intraorbital contents appear normal and symmetric. There are moderate chronic laboratory changes in the right maxillary sinus and ethmoid air cells. The calvarium is intact. IMPRESSION: 1. No acute bleed or mass effect. 2. Chronic inflammatory changes in the paranasal sinuses. [facility], , 05/10/2024 4:00 PM
== END | disposition home or self-care (01) ==
LOC: RADCTMAIN 15:07
PROVIDERS: ATTEND Family Medicine
DX: J34.89 Other specified disorders of nose and nasal sinuses (principal); R51.9 Headache, unspecified
CPT/HCPCS: 70450